=== PATIENT | female | born 2000 | race Caucasian/White ===

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

== ENCOUNTER 2021-04-28 11:08 | Outpatient (CLI) | payer OTHER, SELFPAY ==
[2021-04-28 12:10] LABS: Influenza A QL RT-PCR Negative (Negative); Influenza B QL RT-PCR Negative (Negative); SARS-CoV-2 RNA PCR Positive (Negative)
== END 2021-04-28 11:09 | disposition home or self-care (01) ==
LOC: CHSLAB 11:11
PROVIDERS: PCP Internal Medicine; Visit Provider Internal Medicine
DX: U07.1 COVID-19 (principal)
CPT/HCPCS: 87502; C9803; U0003; U0005

== ENCOUNTER 2021-08-05 09:31 | Outpatient (CLI) | payer OTHER, SELFPAY ==
[2021-08-05 09:46] LABS: Hematocrit 42.6 % (35.0-49.0); Hemoglobin 14.2 g/dL (12.0-15.0); Mean Corpuscular HGB Conc 33.3 g/dL (32.0-36.0); Mean Corpuscular Volume 86.9 fL (78.0-102.0); Mean Platelet Volume 10.6 fl (9.2-11.8); Platelet Count Result 186 K/mm3 (150-420); Red Cell Distribution Width 12.5 % (11.6-14.4); White Blood Count 4.3 K/mm3 (4.8-10.8)
[2021-08-05 09:47] LABS: Add Urine Microscopic? YES; Appearance Urine Clear (Clear); Bilirubin Urine 1+ (Negative); Blood Urine Negative (Negative); Color Urine Yellow (Yellow); Glucose Urine UA 2+ (Negative); Ketones Urine 2+ (Negative); Leukocyte Esterase Ur Negative (Negative); Nitrate Urine Negative (Negative); Protein Urine 1+ (Negative); Specific Grav Ur 1.025 (1.010-1.020); Urobilinogen Urine 0.2 mg/dL (0.2-1.0)
[2021-08-05 09:56] LABS: RBC Urine None seen /hpf (0-2); Squamous Epithelial Cell Urine Few /hpf (Few); WBC Urine None seen /hpf (0-3)
[2021-08-05 09:58] LABS: Bacteria Urine Trace /hpf; Mucus Urine Few /lpf
[2021-08-05 10:04] LABS: Hemoglobin A1C 10.1 % (<5.7)
[2021-08-05 10:18] LABS: Creatinine Urine 204.34 mg/dL (40-278); Lymphocytes Absolute Manual 2.45 K/mm3 (1.1-4.5); Lymphocytes Percent Manual 57 % (18-44); Neutrophils Percent Manual 30 % (46-73); Total Cells Counted 100
[2021-08-05 10:19] LABS: Eosinophils Absolute Manual 0.08 K/mm3 (0.02-0.5); Eosinophils Percent Manual 2 % (1-6); Monocytes Absolute Manual 0.47 K/mm3 (0.1-0.90); Monocytes Percent Manual 11 % (3-9); Platelet Estimate Adequate (Adequate)
[2021-08-05 10:20] LABS: MALB Creatinine Ratio 49.6 mg/g (0-30); Microalbumin Urine Random 101.4 mg/L
[2021-08-05 10:36] LABS: Acetone Negative (Negative)
[2021-08-05 10:44] LABS: Alanine Aminotransferase 43 U/L (14-59); Alkaline Phosphatase 65 U/L (46-116); Anion Gap 9 mmol/L (8-16); Aspartate Amino Transferase 56 U/L (15-37); Bilirubin,Total 0.3 mg/dL (0.00-1.00); Blood Urea Nitrogen 9 mg/dL (7-18); Calcium 8.9 mg/dL (8.5-10.1); Carbon Dioxide 25 mmol/L (21-32); Chloride 103 mmol/L (98-108); Cholesterol 145 mg/dL (0-200); Estimated Glomerular Filt Rate > 60; Glucose 257 mg/dL (70-99); HDL Direct 39 mg/dL (40-60); LDL Cholesterol Calculated 53 mg/dL (<130); Osmolality Calculated 291 mOsm/kg (285-295); Potassium 4.2 mmol/L (3.5-5.1); Sodium 137 mmol/L (136-145); Thyroid Stimulating Hormone 1.82 uIU/mL (0.36-3.74); Total Protein 6.5 g/dL (6.4-8.2); Triglycerides 265 mg/dL (0-150)
[2021-08-05 11:42] LABS: GGT 63 U/L (5-55)
[2021-08-08 12:12] LABS: C-Peptide 3.02 ng/mL (0.80-3.85)
[2021-08-10 04:11] LABS: Hepatitis A Antibody IgM Nonreactive; Hepatitis B Core Antibody Nonreactive (Nonreactive); Hepatitis B Surface Antigen Nonreactive (Nonreactive); Hepatitis C Virus Antibody Nonreactive (Nonreactive)
[2021-08-10 09:32] LABS: CMV IgM Antibody <30.00 AU/mL (<30.00)
[2021-08-11 15:50] LABS: EBV Nuclear Ab Interpretation Past; EBV Virus Capsid Ag IgM Ab <36.00 U/mL (<36.00)
== END 2021-08-05 09:32 | disposition home or self-care (01) ==
LOC: CHSLAB 09:33
PROVIDERS: PCP Internal Medicine; Visit Provider Internal Medicine
DX: R94.5 Abnormal results of liver function studies (principal); E11.10 Type 2 diabetes mellitus with ketoacidosis without coma
CPT/HCPCS: 36415; 80053; 80061; 80074; 81001; 82010; 82043; 82977; 83036; 83525; 84443; 84681; 85025; 86038; 86644; 86645; 86664; 86665

== ENCOUNTER 2021-09-22 17:37 | Outpatient (CLI) | payer OTHER, SELFPAY ==
[2021-09-22 17:52] LABS: Basophils Absolute Auto 0.04 K/mm3 (0.00-0.10); Basophils Percent Auto 0.5 % (0.0-1.0); Eosinophils Percent Auto 1.3 % (1.0-6.0); Hematocrit 41.9 % (35.0-49.0); Hemoglobin 13.6 g/dL (12.0-15.0); Immature Granulocyte Absolute 0.02 K/mm3 (0.00-0.00); Immature Granulocyte Percent A 0.3 % (0.0-0.0); Lymphocytes Percent Auto 45.2 % (18.0-42.0); Mean Corpuscular HGB Conc 32.5 g/dL (32.0-36.0); Mean Corpuscular Volume 89.3 fL (78.0-102.0); Mean Platelet Volume 10.3 fl (9.2-11.8); Monocytes Absolute Auto 0.74 K/mm3 (0.10-0.90); Monocytes Percent Auto 9.8 % (2.0-11.0); Neutrophils Absolute Auto 3.2 K/mm3 (1.7-7.2); Neutrophils Percent Auto 42.9 % (50.0-70.0); Platelet Count Result 303 K/mm3 (150-420); Red Blood Count 4.69 M/mm3 (4.20-5.40); Red Cell Distribution Width 12.2 % (11.6-14.4); White Blood Count 7.5 K/mm3 (4.8-10.8)
== END 2021-09-22 17:38 | disposition home or self-care (01) ==
LOC: CHSLAB 17:39
PROVIDERS: PCP Internal Medicine; Visit Provider Internal Medicine
DX: D72.819 Decreased white blood cell count, unspecified (principal)
CPT/HCPCS: 36415; 85025